=== PATIENT | female | born 1970 | race Caucasian/White ===

== ENCOUNTER 2020-04-15 22:22 | Emergency (ER) | payer MEDICAID ==
[~2020-04-15] VITALS: Ht 170.2 cm; Wt 80.0 kg
[~2020-04-15 22:22] MED LIST: [UNRECOGNIZED DRUG - REMARK]
[2020-04-15 22:34] VITALS: BP 118/81
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
[2020-04-15] MEDS ORDERED: MAALOX/HYOSCYAMINE/LIDOCAINE 45 ML BTL PO ONE (23:00)
[2020-04-15] MEDS ORDERED: MAALOX/HYOSCYAMINE/LIDOCAINE 45 ML BTL ONE (23:03)
== END 2020-04-16 00:11 | disposition home or self-care (01) ==
LOC: ED 22:55
DX: F41.9 Anxiety disorder, unspecified (principal); Z72.9 Problem related to lifestyle, unspecified; F17.200 Nicotine dependence, unspecified, uncomplicated
CPT/HCPCS: 99283; Q0177